=== PATIENT | male | born 1970 | race African-American/Black ===

== ENCOUNTER 2024-05-14 23:45 | Inpatient (IN) | payer MEDICAID ==
[~2024-05-14] VITALS: Ht 180.3 cm; Wt 79.4 kg
[2024-05-14 23:45] VITALS: BP 97/60; PULSE 64; RESP 14; TEMP 97.1; O2SAT 96
[~2024-05-14 23:45] MED LIST: ACET500T99 PO; AMOX1TAB8 PO; IBUP-1842 PO; LACT-58 PO; METF-346 PO; NAPR-1704 PO; PANT40EC PO; THIA-34 PO; THIA100T45 PO; VITB12 PO
[2024-05-15] VITALS (8 sets, daily range): BP systolic 123; BP diastolic 68–81; PULSE 68–88; RESP 18–20; TEMP 97.8; O2SAT 90–99
[2024-05-15 00:19] LABS: BASOPHILS % (AUTO) 0.8 % (0.0-2.0); EOSINOPHILS # (AUTO) 0.1 K/uL (0-0.4); EOSINOPHILS % (AUTO) 1.5 % (0.0-4.0); HEMOGLOBIN 12.2 g/dL (12.0-18.0); LYMPHOCYTES # (AUTO) 1.8 K/uL (2.0-11.5); MEAN CORPUSCULAR HEMOGLOBIN 36 pg (27-31); MEAN CORPUSCULAR HGB CONC 34 g/dL (33-37); MEAN CORPUSCULAR VOLUME 106.5 fL (80-94); MONOCYTES # (AUTO) 0.4 K/uL (0.8-1.0); MONOCYTES % (AUTO) 9.7 % (1.7-9.3); NEUTROPHILS # (AUTO) 2.2 K/uL (1.8-7.7); PLATELET COUNT (AUTO) 215 K/uL (140-450); RED BLOOD CELL COUNT(AUTO) 3.38 MIL/uL (4.20-6.10); RED CELL DISTRIBUTION WIDTH 14.4 % (11.6-13.7); WHITE BLOOD COUNT (AUTO) 4.6 K/uL (4.8-10.8)
[2024-05-15 00:37] LABS: INR 1.04 (0.8-1.2); PARTIAL THROMBOPLASTIN TIME 28.1 secs (22-35.6); PROTHROMBIN TIME 10.9 secs (10.8-13.4)
[2024-05-15 00:38] LABS: ANION GAP 11.3 (8-16); CALCIUM 8.3 mg/dL (8.5-10.1); CARBON DIOXIDE 29.3 mmol/L (21-32); POTASSIUM 3.6 mmol/L (3.5-5.1)
[2024-05-15 00:54] LABS: APPEARANCE,URINE CLEAR (CLEAR); BILIRUBIN,URINE NEGATIVE (NEGATIVE); BLOOD, URINE NEGATIVE (NEGATIVE); COLOR,URINE YELLOW (YELLOW); LEUKOCYTE ESTERASE ,URINE NEGATIVE (NEGATIVE); NITRITE, URINE NEGATIVE (NEGATIVE); PROTEIN,URINE NEGATIVE (NEGATIVE); UGLUCOSE NEGATIVE (NEGATIVE); UROBILINOGEN,URINE 0.2 EU/dL (0.2 - 1)
[2024-05-15 01:02] LABS: BARBITURATE, URINE NEGATIVE ng/ml (NEG <=200)
[2024-05-15 01:03] LABS: AMPHETAMINE, URINE NEGATIVE ng/ml (NEG <=1000); BENZODIAZEPINE, URINE NEGATIVE ng/mL (NEG <=200); CANNABINOID, URINE NEGATIVE ng/mL (NEG <=50); COCAINE, URINE NEGATIVE ng/mL (NEG <=300); OPIATE, URINE NEGATIVE ng/mL (NEG <=2000); PHENCYCLIDINE SCREEN,URINE NEGATIVE ng/mL (NEG <=25)
[2024-05-15] MEDS: FUROSEMIDE 40 MG/4 ML VIAL IVP ONE (01:28)
[2024-05-15] MEDS ORDERED: LISI-953 PO (01:31)
[2024-05-15] MEDS ORDERED: METO25TE2 PO (01:31)
[2024-05-15] MEDS ORDERED: FURO-572 PO (01:31)
[2024-05-15] MEDS: FUROSEMIDE 40 MG/4 ML VIAL IVP SCH (08:52)
[2024-05-15] MEDS ORDERED: ONDANSETRON 4 MG/2 ML VIAL IVP PRN (10:35)
[2024-05-15] MEDS ORDERED: ZOLPIDEM 5 MG TAB PO PRN (10:35)
[2024-05-15] MEDS: MORPHINE SULFATE 2 MG/ML SYR IVP PRN (14:08)
[2024-05-15] MEDS: LORazepam 1 MG TAB PO PRN (22:08)
[2024-05-15] MEDS: ACETAMINOPHEN 325 MG TAB PO PRN (22:59)
[2024-05-16 04:00] VITALS: BP 93/52; PULSE 70; RESP 16; TEMP 96.9; O2SAT 97
[2024-05-16 06:54] LABS: BASOPHILS % (AUTO) 0.5 % (0.0-2.0); EOSINOPHILS % (AUTO) 0.8 % (0.0-4.0); HEMATOCRIT 37.2 % (36-52); HEMOGLOBIN 12.5 g/dL (12.0-18.0); LYMPHOCYTES # (AUTO) 1.3 K/uL (2.0-11.5); LYMPHOCYTES % (AUTO) 32.3 % (20.5-51.1); MEAN CORPUSCULAR HEMOGLOBIN 36 pg (27-31); MEAN CORPUSCULAR HGB CONC 34 g/dL (33-37); MEAN CORPUSCULAR VOLUME 105.2 fL (80-94); MONOCYTES # (AUTO) 0.4 K/uL (0.8-1.0); MONOCYTES % (AUTO) 9.4 % (1.7-9.3); NEUTROPHILS # (AUTO) 2.3 K/uL (1.8-7.7); PLATELET COUNT (AUTO) 183 K/uL (140-450); RED BLOOD CELL COUNT(AUTO) 3.53 MIL/uL (4.20-6.10)
[2024-05-16 07:00] LABS: ALBUMIN 3.2 g/dL (3.4-5.0); ANION GAP 13.4 (8-16); CALCIUM 8.6 mg/dL (8.5-10.1); CARBON DIOXIDE 27.7 mmol/L (21-32); MAGNESIUM 1.6 mg/dL (1.8-2.4); PHOSPHORUS 3.8 mg/dL (2.5-4.9); POTASSIUM 3.1 mmol/L (3.5-5.1); TOTAL BILIRUBIN 1.5 mg/dL (0.0-1.0); TOTAL PROTEIN, SERUM 6.8 g/dL (6.4-8.2)
[2024-05-16 08:00] VITALS: BP 116/78; PULSE 67; RESP 20; TEMP 97.7; O2SAT 97
[2024-05-16] MEDS: FUROSEMIDE 40 MG/4 ML VIAL IVP SCH (08:33)
[2024-05-16] MEDS: METOPROLOL 25 MG TAB PO SCH (08:33)
[2024-05-16] MEDS: POTASSIUM CHLORIDE 10 MEQ TABER PO PRN (08:33)
[2024-05-16] MEDS: lisinopriL 5 MG TAB PO SCH (08:34)
[2024-05-16] MEDS: FOLIC ACID 1 MG TAB PO SCH (08:34)
[2024-05-16] MEDS: CYANOCOBALAMIN 100 MCG TAB PO SCH (08:34)
[2024-05-16] MEDS: MAGNESIUM OXIDE 400 MG TAB PO PRN (08:34)
[2024-05-16] MEDS ORDERED: SACU1TAB PO (11:14)
[2024-05-16] MEDS ORDERED: FURO-572 PO (11:16)
[2024-05-16] MEDS ORDERED: METO25TE47 PO (11:16)
[2024-05-16 11:44] VITALS: BP 116/78; PULSE 67; RESP 20; TEMP 97.7
[2024-05-16 12:00] VITALS: BP 116/78; PULSE 67; RESP 20; TEMP 97.7; O2SAT 97
== END 2024-05-16 15:00 | disposition home or self-care (01) | DRG 194 ==
LOC: MED 23:45 → MTU 05-15 05:48
PROVIDERS: ADMIT Student in an Organized Health Care Education/Training Program; ATTEND Student in an Organized Health Care Education/Training Program
DX: I11.0 Hypertensive heart disease with heart failure (principal); I42.9 Cardiomyopathy, unspecified; K70.30 Alcoholic cirrhosis of liver without ascites; E83.51 Hypocalcemia; I50.23 Acute on chronic systolic (congestive) heart failure; R07.89 Other chest pain
CPT/HCPCS: 36415; 71045; 80048; 80053; 80305; 81003; 82140; 83735; 83880; 84100; 84484; 85025; 85610; 85730; 87081; 93005; 93308; 96374; 99285; G0482; J1940; J2270; Q0092